=== PATIENT | female | born 2000 | race Caucasian/White ===

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

== ENCOUNTER 2019-08-25 15:39 | Outpatient (CLI) | payer MEDICAID ==
[~2019-08-25] VITALS: Ht 162.6 cm; Wt 64.5 kg
[~2019-08-25 15:39] MED LIST: BREASTPUMP MC; MOTRIN 800800 MG/TAB PO; PERCOCET 325 MG1 TA2 PO
[2019-08-25 15:45] VITALS: BP 118/72; PULSE 68; TEMP 98.2
--- NOTE | 2019-08-25 16:17 | NUR ---
1543 PATIENT HERE FROM OFFICE FOR MONITORING. EFM ON FHT 125 BABY VERY ACTIVE GOOD ACCELERATIONS NOTED. NO CONTRACTIONS FELT BY PATIENT OR ON MONITOR. DENIES NEEDS AT THIS TIME.
[2019-08-25 16:29] VITALS: BP 126/60; PULSE 87
--- NOTE | 2019-08-25 16:29 | NUR ---
1630 FHT 120 GOOD ACCELERATIONS NOTED. BABY VERY ACTIVE. REACTIVE STRIP NOTED. DR ASHLEY CALLED AND ODERS TO DISMISS TO HOME TO FOLLOW UP TOMORROW AT 1330 FOR NST AT OFFICE.
== END 2019-08-25 16:31 | disposition home or self-care (01) ==
LOC: LDRO 15:39
DX: Z34.93 Encounter for supervision of normal pregnancy, unspecified, third trimester (principal); Z3A.35 35 weeks gestation of pregnancy

== ENCOUNTER 2019-09-09 08:49 | Outpatient (CLI) | payer MEDICAID ==
[~2019-09-09] VITALS: Ht 162.6 cm; Wt 62.7 kg
--- NOTE | 2019-09-09 08:50 | NUR ---
Pt arrives on unit ambulatory with daughter and FOB. States back pain and regular ctx q 3 minutes. Denies LOF, vaginal bleeding and reports GFM. Changed into a clean gown. EFM and toco applied. VSS. Admission assessment completed. SVE /-2. Dr. Man notified. See physician notification. Pt updated on POC. Safety reviewed. Bed locked in low position. Call light within reach. No questions or concerns at this time.
--- NOTE | 2019-09-09 09:45 | NUR ---
Dr. Man at bedside. SVE per provider /-2. Labor precautions given. Orders for discharge. Pt agrees to POC. No questions or concerns at this time. Taken off monitors. Discharge instructions given. Leave unit ambulatory with FOB and daughter.
[2019-09-09 09:49] VITALS: BP 116/71; PULSE 100; TEMP 97.6
== END 2019-09-09 10:00 | disposition home or self-care (01) ==
LOC: LDRO 08:49 → LDR 08:50 → LDRO 10:00
DX: O62.9 Abnormality of forces of labor, unspecified (principal); Z3A.37 37 weeks gestation of pregnancy
CPT/HCPCS: OP

== ENCOUNTER 2019-09-10 01:32 | Inpatient (IN) | payer MEDICAID ==
[2019-09-10] VITALS (14 sets, daily range): BP systolic 99–138; BP diastolic 53–74; PULSE 67–104; TEMP 97.2–98.3
[~2019-09-10] VITALS: Ht 162.6 cm; Wt 62.7 kg
[2019-09-10 02:37] LABS: HEMOGLOBIN 10.8 g/dl (12.5-16.0); MEAN CELL VOLUME 92 fl (80.0-100.0); MEAN CORPUSCULAR HEMOGLOBIN 31 pg (27.0-31.0); MEAN CORPUSCULAR HGB CONC 34 g/dl (33.0-37.0); PLATELET COUNT 163 K/mm3 (130-400); RED BLOOD COUNT 3.45 M/mm3 (4.10-5.30); REDCELL DISTRIBUTION WIDTH-CV 12.2 % (11.5-14.5)
[2019-09-10 02:38] LABS: HEMATOCRIT 31.8 % (37.0-47.0)
[2019-09-10 03:29] LABS: BAND 9 % (0-10); EOSINOPHIL 2 % (0-4); LYMPHOCYTE 22 % (20.0-51.0); METAMYELOCYTE 1 % (0-0); NEUTROPHILS 61 % (42.0-75.2)
--- NOTE | 2019-09-10 04:00 | NUR ---
0140- Patient and FOB ambulatory to LDR-3 for labor check. Patient oriented to room. Patient into restroom to change void and change into gown. 0145- EFM and TOCO on and tracing. Patient here with complaints of contractions every 3 minutes since 0. Patient seen on L&D yesterday, 09/09/19, for contractions. SVE 5-/-1 with bulgy bag of water. Patient has had some spotting since SVE yesterday, but denies bleeding or leaking of fluid. 0200- See Physician Notification. 0300- SVE -. See Physician Notification. 0315- Stadol given. See eMAR. 0325- at bedside. 0330- AROM. Patient begins spontaneously pushing during contractions. 0336- of viable baby girl. Cord clamped and cut. Cord blood obtained. Left labial laceration repaired by . 0345- Spontaneous delivery of intact placenta. Pitocin infusing at 333 ml/hr per protocol. Fundus massaged to firm by . Pericare provided. Ice pack applied. 0345- PP Recovery.
--- NOTE | 2019-09-10 06:00 | NUR ---
Patient ambulatory to room. Gait steady. VSS. PP bleeding WNL.
--- NOTE | 2019-09-10 12:07 | NUR ---
Initial visit; Parents thanked Motivational Speaker for offering congratulations for the of their daughter. Motivational Speaker thanked family for choosing [facility].
[2019-09-11 07:10] VITALS: BP 110/68; PULSE 72; TEMP 98
[2019-09-11] MEDS ORDERED: MOTRIN 800800 MG/TAB PO (08:41)
[2019-09-11 15:55] VITALS: BP 116/75; PULSE 75; TEMP 98.1
[2019-09-11 21:00] VITALS: BP 112/68; PULSE 72; TEMP 97.8
[2019-09-12 07:59] VITALS: BP 109/59; PULSE 83
== END 2019-09-12 14:10 | disposition home or self-care (01) | DRG 807 ==
LOC: LDRO 01:32 → LDR 02:00 → OB 02:00
PROVIDERS: Obstetrics & Gynecology; ADMIT Obstetrics & Gynecology
PROC: 10E0XZZ Delivery of Products of Conception, External Approach (ICD-10-PCS; principal; 2019-09-10)
PROC: 0UQMXZZ Repair Vulva, External Approach (ICD-10-PCS; 2019-09-10)
PROC: 10907ZC Drainage of Amniotic Fluid, Therapeutic from Products of Conception, Via Natural or Artificial Opening (ICD-10-PCS; 2019-09-10)
DX: O36.5930 Maternal care for other known or suspected poor fetal growth, third trimester, not applicable or unspecified (principal); Z37.0 Single live birth; O70.0 First degree perineal laceration during delivery; Z3A.37 37 weeks gestation of pregnancy
CPT/HCPCS: J0595; J2590; J7120